=== PATIENT | male | born 1985 | race African-American/Black ===

== ENCOUNTER 2017-03-24 22:43 | Emergency (ER) | payer OTHER ==
[~2017-03-24] VITALS: Ht 198.1 cm; Wt 111.1 kg
[~2017-03-24 22:43] MED LIST: CLARITIN10 MG PO; NORCO 5-325 TA1 EACH PO
[2017-03-24 22:57] LABS: URINE BILIRUBIN NEGATIVE (Negative); URINE BLOOD NEGATIVE (Negative); URINE COLOR YELLOW; URINE GLUCOSE-RANDOM* NEGATIVE (Negative); URINE KETONES NEGATIVE (Negative); URINE LEUKOCYTES-REFLEX NEGATIVE (Negative); URINE PROTEIN (DIPSTICK) 2+ (Negative); URINE UROBILINOGEN 0.2 E.U./dl (0.2-1.0)
[2017-03-24 23:06] LABS: ABSOLUTE NEUTROPHILS 4.4 thou/uL (1.4-8.2); EOSINOPHILS 3.7 % (0.0-3.0); HEMATOCRIT 37.7 % (42.0-52.0); HEMOGLOBIN 13.1 gm/dL (14.0-18.0); LYMPHOCYTES 34.6 % (24.0-44.0); MCH 31.7 pg (26.0-34.0); MCHC 34.7 g/dL (28.0-37.0); MCV 91.4 fL (80.0-100.0); MONOCYTES 11.4 % (1.0-8.0); PLATELET COUNT 244 thou/uL (150-400); POLYS 49.3 % (36.0-66.0); RBC 4.12 mil/uL (4.50-6.00); RDW 13.4 % (10.5-14.5); WBC 8.9 thou/uL (4.0-11.0)
[2017-03-24 23:10] LABS: MANUAL DIFF NO
[2017-03-24 23:13] LABS: SQUAMOUS 0-3 Few /LPF (0-3); URINE WBC-REFLEX 0-5 Rare /HPF (0-5)
[2017-03-24 23:14] LABS: CASTS None Seen /LPF (None Seen); CRYSTALS None Seen /LPF (None Seen); URINE RBC None Seen /HPF (0-2)
[2017-03-24 23:15] LABS: CREATININE 1.3 mg/dL (0.7-1.3); POTASSIUM 3.6 mmol/L (3.5-5.1)
[2017-03-24 23:21] LABS: TOTAL BILIRUBIN 0.5 mg/dL (<0.1-1.0); TOTAL PROTEIN 7.5 g/dL (6.4-8.2)
[2017-03-25] MEDS ORDERED: LEVSIN0.125 MG PO (00:09)
[2017-03-25] MEDS ORDERED: PRILOSEC 20 MG20 MG PO (00:09)
[2017-03-25] MEDS ORDERED: FLAGYL500 MG PO (00:16)
[2017-03-25 00:17] VITALS: BP 139/70
== END 2017-03-25 00:21 | disposition home or self-care (01) ==
LOC: ER 22:43
PROVIDERS: Emergency Medicine
DX: R10.33 Periumbilical pain (principal); G43.909 Migraine, unspecified, not intractable, without status migrainosus; F17.210 Nicotine dependence, cigarettes, uncomplicated; F10.99 Alcohol use, unspecified with unspecified alcohol-induced disorder; Z20.2 Contact with and (suspected) exposure to infections with a predominantly sexual mode of transmission; Z88.8 Allergy status to other drugs, medicaments and biological substances

== ENCOUNTER 2017-06-25 22:54 | Emergency (ER) | payer OTHER ==
[~2017-06-25] VITALS: Ht 198.1 cm; Wt 111.1 kg
[~2017-06-25 22:54] MED LIST changes: +FLAGYL500 MG PO; +LEVSIN0.125 MG PO; +PRILOSEC 20 MG20 MG PO
[2017-06-25 22:56] VITALS: BP 148/84
[2017-06-25] MEDS ORDERED: BUTALB-APAP-CA1 EACH PO (23:00)
[2017-06-25] MEDS ORDERED: KEFLEX500 M1 PO (23:12)
[2017-06-25] MEDS ORDERED: BACTRIM DS TAB1 EACH PO (23:12)
== END 2017-06-25 23:35 | disposition home or self-care (01) ==
LOC: ER 22:54
DX: L02.415 Cutaneous abscess of right lower limb (principal); L02.413 Cutaneous abscess of right upper limb; F17.210 Nicotine dependence, cigarettes, uncomplicated; Z88.0 Allergy status to penicillin

== ENCOUNTER 2017-09-12 18:54 | Inpatient (IN) | payer OTHER ==
[~2017-09-12] VITALS: Ht 198.1 cm; Wt 111.1 kg
--- NOTE | ~2017-09-12 | HC ---
[facility] [place] [place] [address] CONSULTATION Name: STEVEN MCCOLLUM Room #: 349-I [facility] IN M.R.#: [id number] Admission: 09/13/17 Attend Phys: Kait Paz Discharge: 09/13/17 Date of : 81 Report #: [id number] THIS REPORT FOR: //name// CC: STEPHANIE Vieira DATE OF SERVICE: 09/13/2017 HISTORY OF PRESENT ILLNESS: This is a 32-year-old male patient who was evaluated by me for paraesthesias he had on the right side of the face. It started more than 24 hours prior to the admission. It started spontaneously. The symptoms were mild. The patient did not want to come to the hospital, but subsequently did when the family told him to do that. I reviewed all the records in this patient and it looks like he had presented with a right-sided headache and was evaluated by Dr. Tim in the Emergency Room in 2014 and his workup apparently was unremarkable at that time. REVIEW OF SYSTEMS: Indicate he had a history of abscess in the past. He did not provide any history, but that history I got it from the records. He was once here for abdominal pain. The patient did not provide any of this history and he was mostly a reluctant historian and I have to get the history from the records in this patient. He is feeling back to baseline. He does not believe that he has any further symptoms. To me, he told me he is not having any headache. He really wanted to go home. I carried out 14-point review of system in this patient and the best I can tell from him and the best he can cooperate, it would appear it is unremarkable. PAST MEDICAL HISTORY: He does have a past history of migraine, but he never had a stroke before. He was not on aspirin when this episode occurred. FAMILY HISTORY: According to him is negative for any epilepsy. SOCIAL HISTORY: He does have a history of smoking. He drinks alcohol, but he says he does not do it excessively. He denies the use of any drugs. PHYSICAL EXAMINATION: Difficult because he will not cooperate. He wants to go home. He was a pretty reluctant person to do the history or exam. He is alert and oriented. He can follow simple commands. His speech, concentration, fund of knowledge and memory is at his baseline. Cranial nerve examination 2-12 is unremarkable. His strength, sensation, reflexes and tones are symmetrical. There is no meningeal sign. There is no carotid bruit in this patient. Cardiac examination does not show any atrial fibrillation. No respiratory difficulty. Pulses are palpable. Blood pressure is 128/74, respirations 14, pulse is 93, temperature is 98. [facility] [address] [place] [address] CONSULTATION Name: VEDASTEVEN Room #: 349-I [facility] IN M.R.#: [id number] Admission: 09/13/17 Attend Phys: Kait Paz Discharge: 09/13/17 Date of : 81 Report #: [id number] LABORATORY DATA: His creatinine is increased, but GFR is okay. His LDL is 90. He did have an MRI, which demonstrated stroke, but vessels are clean. IMPRESSION: This patient had a stroke, which appeared to be cryptogenic at the moment. He needs further workup to make sure there is no other etiology. He really wants to go home and I do not think that he will do much over the weekend here, but he needs 30 days event monitor as well as SHAKIRA as an outpatient. He must make an appointment with quality control clerk soon. Presently, he can be put on full aspirin and statin. This is because his LDL is 90. His hypercoagulable profile is drawn and we will see what it shows and his echocardiogram does not show any patent foramen ovale. RECOMMENDATIONS: 1. He should follow up with quality control clerk in 1 week. He should get 30 days event monitor and depending upon Cardiology assessment, a SHAKIRA. I personally will favor SHAKIRA because of his young age. 2. Drug screen was not done on admission and I did not send it because his stroke is more than 36 hour old. If he has any further stroke-like symptom, he must call 911. All of it was discussed with the patient in great detail and I did call Dr. Paz and discussed the patient with him. The patient was also discussed with Emergency Room physician last night. More than 50 minutes of time was spent taking care of this patient and majority of that time was spent counseling the patient and coordinating his care. <ELECTRONICALLY SIGNED> By: Christopher Vieira MD 09/19/17 1355 [id number] Christopher Vieira MD /nt
--- NOTE | ~2017-09-12 | 2DMMODE ---
[facility] [address] [place] [address] 2 D/M-MODE ECHOCARDIOGRAM Name: VEDAKIMBERLYMARY Room #: 349-I ADM IN M.R.#: [id number] Admission: 09/13/17 Attend Phys: Kait Fan Discharge: Date of : 81 Date of Service: 09/13/17 0927 Report #: [id number] THIS REPORT FOR: //name// APPROVED REPORT Study performed: 09/13/2017 08:35:43 EXAM: Comprehensive 2D, Doppler, and color-flow Echocardiogram Patient Location: Echo lab Room #: 349 Status: routine BSA: 2.46 HR: 53 bpm BP: 139/79 mmHg Other Information Study Quality: Good Indications CVA/TIA Echo Enhancing Agent Indication: Rule out Shunt Agent(s) / Amount(s) Used: Agitated Saline 6 cc 2D Dimensions RVDd: 38.33 mm LVEF(%): 53.72 (>50%) IVSd: 11.70 (7-11mm) LVOT Diam: 23.17 (18-24mm) LVDd: 56.77 mm PWd: 10.66 (7-11mm) Ascending Ao: 30.42 (22-36mm) LVDs: 40.81 (25-40mm) Aortic Root: 33.84 mm IVC: 17.00 mm Merida's LVEF: 53.72 % Volumes Left Atrial Volume (Systole) Single Plane 4CH: 42.94 mL Single Plane 2CH: 79.35 mL LA ESV Index: 27.00 mL/m2 Aortic Valve AoV Peak Home.: 1.36 m/s AO Peak Gr.: 7.40 mmHg LVOT Max P.57 mmHg LVOT Max V: 0.94 m/s ISHA Vmax: 2.93 cm2 [facility] [place] [address] 2 D/M-MODE ECHOCARDIOGRAM Name: STEVEN MCCOLLUM Room #: 349-I [facility] IN M.R.#: [id number] Admission: 09/13/17 Attend Phys: Kait Fan Discharge: Date of : 81 Date of Service: 09/13/17 0927 Report #: [id number] Mitral Valve E/A Ratio: 2.1 MV Decel. Time: 257.96 ms MV E Max Home.: 0.70 m/s MV A Home.: 0.34 m/s MV PHT: 74.81 ms IVRT: 100.35 ms Pulmonary Valve PV Peak Home.: 1.32 m/s PV Peak Gr.: 6.97 mmHg Pulmonary Vein P Vein S: 0.50 m/s P Vein A: 0.26 m/s P Vein D: 0.51 m/s P Vein A Dur.: 115.3 msec P Vein S/D Ratio: 0.98 Tricuspid Valve TR Peak Home.: 2.47 m/s RAP Estimate: 5.00 mmHg TR Peak Gr.: 24.40 mmHg PA Pressure: 29.00 mmHg Left Ventricle The left ventricle is normal size. There is normal LV segmental wall motion. There is normal left ventricular wall thickness. The left ventricular systolic function is normal. The left ventricular ejection fraction is within the normal range. LVEF is 60%. The left ventricular diastolic function is normal. Right Ventricle The right ventricle is normal size. The right ventricular systolic function is normal. Atria The left atrium size is normal. No shunting by contrast bubble injection. The right atrium size is normal. Aortic Valve The aortic valve is normal in structure. Trace aortic regurgitation. There is no aortic valvular stenosis. Mitral Valve The mitral valve is normal in structure. There is no mitral valve regurgitation noted. No evidence of mitral valve stenosis. Tricuspid Valve The tricuspid valve is normal in structure. Trace to mild tricuspid [facility] [address] [place] [address] 2 D/M-MODE ECHOCARDIOGRAM Name: STEVEN MCCOLLUM Room #: 349-I ADM IN [facility].#: [id number] Admission: 09/13/17 Attend Phys: Kait Fan Discharge: Date of : 81 Date of Service: 09/13/17 0927 Report #: [id number] regurgitation. PAP is estimated at 30 mmHg. Pulmonic Valve The pulmonary valve is normal in structure. Mild pulmonic regurgitation. Great Vessels The aortic root is normal in size. IVC is normal in size and collapses >50% with inspiration. Pericardium There is no pericardial effusion. <Conclusion> The left ventricular systolic function is normal. There is normal LV segmental wall motion. LVEF is 60%. Normal diastolic function No shunting by contrast bubble injection. The aortic valve is normal in structure. Trace aortic regurgitation, no stenosis. The mitral valve is normal in structure. No mitral valve regurgitation noted. Trace to mild tricuspid regurgitation. Pulmonary artery pressure estimated at 30 mmHg. There is no pericardial effusion. <ELECTRONICALLY SIGNED> By: Tawanda Begum MD, FACC 09/13/17926 6 6 Tawanda Begum MD, FACC /INF
[~2017-09-12 18:54] MED LIST changes: +BACTRIM DS TAB1 EACH PO; +BUTALB-APAP-CA1 EACH PO; +KEFLEX500 M1 PO
[2017-09-12 19:03] VITALS: BP 132/67
[2017-09-12 21:24] LABS: BASOPHILS 0.8 % (0.0-2.0); EOSINOPHILS 5.2 % (0.0-3.0); HEMATOCRIT 39.3 % (42.0-52.0); HEMOGLOBIN 13.7 gm/dL (14.0-18.0); LYMPHOCYTES 37.9 % (24.0-44.0); MCH 31.7 pg (26.0-34.0); MCHC 34.8 g/dL (28.0-37.0); MCV 91.2 fL (80.0-100.0); MONOCYTES 11.9 % (1.0-8.0); PLATELET COUNT 230 thou/uL (150-400); POLYS 44.2 % (36.0-66.0); RBC 4.31 mil/uL (4.50-6.00); RDW 13.7 % (10.5-14.5)
[2017-09-12 21:32] LABS: CALCIUM 9.1 mg/dL (8.5-10.1); CREATININE 1.6 mg/dL (0.7-1.3); POTASSIUM 3.8 mmol/L (3.5-5.1)
[2017-09-12 21:38] LABS: ALBUMIN 3.5 g/dL (3.4-5.0); TOTAL BILIRUBIN 0.2 mg/dL (<0.1-1.0); TOTAL PROTEIN 7.2 g/dL (6.4-8.2)
[2017-09-12 21:39] LABS: PROTIME 10.5 Seconds (9.3-11.4)
[2017-09-13 02:57] VITALS: BP 142/81
[2017-09-13 06:27] LABS: CALCIUM 8.9 mg/dL (8.5-10.1); CREATININE 1.5 mg/dL (0.7-1.3); POTASSIUM 4.4 mmol/L (3.5-5.1)
[2017-09-13 06:33] LABS: CHOLESTEROL 163 mg/dL (<200); HDL CHOLESTEROL 58 mg/dL (>40); LDL CHOLESTEROL 90 mg/dL (<100); TC:HDL 2.8 Ratio (Not establshd); TRIGLYCERIDE 76 mg/dL (<150); VLDL 15 mg/dL (<40)
[2017-09-13 07:06] VITALS: BP 139/79
[2017-09-13 11:11] VITALS: BP 148/72
[2017-09-13] MEDS ORDERED: ASPIRIN325 PO (14:44)
[2017-09-13] MEDS ORDERED: AMLODIPINE BESYL5 M1 PO (14:44)
[2017-09-13 15:23] VITALS: BP 128/74
[2017-09-13 15:44] VITALS: BP 128/74
== END 2017-09-13 16:14 | disposition home or self-care (01) | DRG 64 ==
LOC: ER 18:54 → 3W 09-13 01:30 → EROBS 09-13 01:30 → 3W 09-13 02:59
PROVIDERS: Emergency Medicine; Hospitalist; Nurse Practitioner Acute Care; Nurse Practitioner Family
DX: I63.9 Cerebral infarction, unspecified (principal); N17.0 Acute kidney failure with tubular necrosis; G43.909 Migraine, unspecified, not intractable, without status migrainosus; J45.909 Unspecified asthma, uncomplicated; F17.210 Nicotine dependence, cigarettes, uncomplicated; N18.3 Chronic kidney disease, stage 3 (moderate); I12.9 Hypertensive chronic kidney disease with stage 1 through stage 4 chronic kidney disease, or unspecified chronic kidney disease; Z90.49 Acquired absence of other specified parts of digestive tract; Z88.8 Allergy status to other drugs, medicaments and biological substances; Z82.49 Family history of ischemic heart disease and other diseases of the circulatory system
CPT/HCPCS: 10879

== ENCOUNTER 2020-02-25 19:42 | Emergency (ER) | payer OTHER ==
[~2020-02-25] VITALS: Ht 198.1 cm; Wt 117.9 kg
[~2020-02-25 19:42] MED LIST changes: +AMLODIPINE BESYL5 M1 PO; +ASPIRIN325 PO
[2020-02-25] MEDS ORDERED: AMOXICILLIN500 M1 PO (20:08)
[2020-02-25] MEDS ORDERED: LORCET 5-325 M1 EACH PO (20:09)
[2020-02-25] MEDS ORDERED: IBUPROFEN 600600 M1 PO (20:09)
[2020-02-25 20:28] VITALS: BP 147/88
== END 2020-02-25 20:29 | disposition home or self-care (01) ==
LOC: ER 19:42
DX: S09.93XA Unspecified injury of face, initial encounter (principal); G43.909 Migraine, unspecified, not intractable, without status migrainosus; J45.909 Unspecified asthma, uncomplicated; F17.210 Nicotine dependence, cigarettes, uncomplicated; Z88.8 Allergy status to other drugs, medicaments and biological substances; Z90.49 Acquired absence of other specified parts of digestive tract; Z79.899 Other long term (current) drug therapy; Z79.82 Long term (current) use of aspirin; X58.XXXA Exposure to other specified factors, initial encounter; Y93.89 Activity, other specified; Y92.89 Other specified places as the place of occurrence of the external cause; Y99.8 Other external cause status